=== PATIENT | female | born 1985 | race Two or more races ===

== ENCOUNTER 2020-10-10 09:59 | Emergency (ER) | payer MEDICARE, OTHER ==
[~2020-10-10] VITALS: Ht 157.5 cm; Wt 96.6 kg
[2020-10-10] MEDS ORDERED: cloNIDine HCL 0.1 MG TAB ONE (10:05)
[2020-10-10] MEDS ORDERED: cloNIDine HCL 0.1 MG TAB PO ONE (10:15)
[2020-10-10 10:39] LABS: Urine Bacteria NONE SEEN /hpf (None Seen); Urine Blood Negative /uL (Negative); Urine Hyaline Cast FEW /lpf (0 - 2); Urine Mucus FEW (None Seen); Urine Specific Gravity 1.026 (1.001-1.035); Urine WBC 2 /hpf (0 - 5)
[2020-10-10 10:43] VITALS: BP 155/92
[2020-10-10] MEDS ORDERED: KETOROLAC TROMETH 60MG/2ML VIAL IM ONE (12:00)
== END 2020-10-10 12:23 | disposition home or self-care (01) ==
LOC: ER 09:59
DX: G89.29 Other chronic pain (principal); M54.5 Low back pain; I10 Essential (primary) hypertension; Z88.2 Allergy status to sulfonamides
CPT/HCPCS: 81001; 96372; 99283; J1885